=== PATIENT | male | born 1965 | race Caucasian/White ===

== ENCOUNTER 2024-02-24 17:06 | Emergency (ER) | payer MEDICARE ==
[~2024-02-24] VITALS: Ht 172.7 cm; Wt 122.7 kg
[~2024-02-24 17:06] MED LIST: AMBIEN10 MG PO; ASPIRIN 32325 MG/TAB PO; ATENOLOL50 MG PO; CLONAZEPAM0.5 MG PO; GLUCOSAMINE500 M1 PO; HCTZ 25MG25 MG PO; LORTAB 5/500 501 TAB PO; METFORMIN HCL500 MG PO; SIMVASTATIN20 MG PO; ZESTRIL10 MG PO; potassium
[2024-02-24 17:27] VITALS: TEMP 96.7
[2024-02-24 18:00] VITALS: BP 131/91; PULSE 104
== END 2024-02-24 17:59 | disposition home or self-care (01) ==
LOC: COL.ER 17:06
DX: G89.18 Other acute postprocedural pain (principal); S24.102A Unspecified injury at T2-T6 level of thoracic spinal cord, initial encounter; S24.153A Other incomplete lesion at T7-T10 level of thoracic spinal cord, initial encounter; S24.154A Other incomplete lesion at T11-T12 level of thoracic spinal cord, initial encounter; X58.XXXA Exposure to other specified factors, initial encounter